=== PATIENT | male | born 1970 | race Caucasian/White ===

== ENCOUNTER 2024-06-20 17:15 | Emergency (ER) | payer OTHER ==
[~2024-06-20] VITALS: Ht 172.7 cm; Wt 82.0 kg
[2024-06-20 17:17] VITALS: BP 100/60; PULSE 115; RESP 18; TEMP 36.8; O2SAT 100
[2024-06-20] MEDS: CEPHALEXIN 250MG CAPSULE PO ONE (19:00)
[2024-06-20] MEDS ORDERED: CEPH500C2 MT (20:10)
[2024-06-20] MEDS ORDERED: SULF1TAB48 MT (20:10)
[2024-06-20] MEDS ORDERED: IBUP-2029 MT (20:10)
[2024-06-20] MEDS: TETANUS, DIPHTHERIA, PERTUSSIS VAC/PF 0.5ML (>10YR OLD) IM ONE (20:31)
== END 2024-06-20 20:34 | disposition home or self-care (01) ==
LOC: ER 17:15
DX: S51.812A Laceration without foreign body of left forearm, initial encounter (principal); M79.642 Pain in left hand; M79.641 Pain in right hand; Z79.899 Other long term (current) drug therapy; Y08.89XA Assault by other specified means, initial encounter; Y93.89 Activity, other specified; Y92.89 Other specified places as the place of occurrence of the external cause; Y99.8 Other external cause status
CPT/HCPCS: 90715; 90471; 99283; Z7610

== ENCOUNTER 2024-07-29 18:20 | Emergency (ER) | payer MEDICAID, OTHER ==
[~2024-07-29] VITALS: Ht 177.8 cm; Wt 85.0 kg
[~2024-07-29 18:20] MED LIST: CEPH500C2 MT; IBUP-2029 MT; SULF1TAB48 MT
[2024-07-29 18:26] VITALS: O2SAT 100
[2024-07-29 18:49] VITALS: TEMP 36.9
[2024-07-29] MEDS: SODIUM CHLORIDE 0.9% 1,000 ML IV ONE (18:58)
[2024-07-29] MEDS: ONDANSETRON HCL 4MG/2ML INJ IV STA (18:58)
[2024-07-29 19:21] LABS: CHLORIDE 103 mEq/L (98-107); HEMATOCRIT. 42.8 % (42.0-52.0); HEMOGLOBIN. 13.8 g/dL (14.0-18.0); MEAN CORPUSCULAR HEMOGLOBIN 28.3 pg (28.0-32.0); MEAN CORPUSCULAR HGB CONC 32.3 g/dL (31.0-37.0); MEAN CORPUSCULAR VOLUME 87.5 fL (80.0-94.0); MEAN PLATELET VOLUME 8.9 fl (7.4-10.4); PLATELET 262 x1000/uL (130-400); POTASSIUM 4.7 mEq/L (3.5-5.1); RED BLOOD CELL COUNT 4.89 mill/uL (4.7-6.1); RED CELL DISTRIBUTION WIDTH 14.7 % (11.6-14.6); SODIUM 140 mEq/L (136-145); WHITE BLOOD COUNT 21.6 x1000/uL (4.5-11.0)
[2024-07-29 19:22] LABS: CALCIUM 9.6 mg/dL (8.7-10.4); CARBON DIOXIDE 16 mEq/L (21-32)
[2024-07-29 19:27] LABS: CREATININE 1.4 mg/dL (0.6-1.3); GLUCOSE 117 mg/dL (70-105)
[2024-07-29 19:28] LABS: ETHANOL BLOOD < 10 mg/dL (<10); TROPONIN I HIGH SENSITIVITY 34 ng/L (3.0-53); UREA NITROGEN BLOOD 17 mg/dL (9-23)
[2024-07-29 19:29] LABS: ALANINE AMINOTRANSFERASE 42 IU/L (10-49); ALBUMIN 4.3 g/dL (3.2-4.8); ASPARTATE AMINOTRANSFERASE 99 IU/L (<34); BILIRUBIN DIRECT 0.3 mg/dL (<=3.0); BILIRUBIN TOTAL 1.5 mg/dL (0.1-1.0)
[2024-07-29 19:30] LABS: PROTEIN TOTAL 7.8 g/dL (6.0-8.3)
[2024-07-29 19:41] LABS: DIFFERENTIAL COMMENT 1
[2024-07-29 20:28] LABS: PLATELET ESTIMATE NORMAL
[2024-07-29 21:13] LABS: PROTHROMBIN TIME 10.9 sec (9.6-11.0)
[2024-07-29 21:59] VITALS: BP 118/76; PULSE 102; RESP 16; O2SAT 97
== END 2024-07-29 22:16 | disposition home or self-care (01) ==
LOC: ER 18:20
DX: T73.3XXA Exhaustion due to excessive exertion, initial encounter (principal); Z79.899 Other long term (current) drug therapy; W19.XXXA Unspecified fall, initial encounter; Y93.89 Activity, other specified; Y92.89 Other specified places as the place of occurrence of the external cause; Y99.8 Other external cause status
CPT/HCPCS: 80076; 80048; 80320; 83690; 85025; 85610; 84484; 36415; 71045; 96361; 96374; 99284; J2405; J7030; Z7610; G0480